=== PATIENT | male | born 1960 | race Caucasian/White ===

== ENCOUNTER 2020-02-21 09:33 | Day surgery (SDC) | payer OTHER, MEDICAID, SELFPAY ==
[2020-02-21] VITALS (16 sets, daily range): BP systolic 119–159; BP diastolic 77–98; PULSE 77–88; RESP 10–22; TEMP 36.7–37.6; O2SAT 94–99
--- NOTE | 2020-02-21 09:58 | SUR.OPER ---
Supine on padded OR bed, head on pillow, arms secured on padded arm boards at <90 degrees abduction, legs uncrossed, safety belt at thigh, tape over blanket over lower legs. RIGHT HIP BUMPED WITH SANDBAG
--- NOTE | 2020-02-21 10:25 | PM.PREOP ---
Pre-operative Note Interval Note History & Physical reviewed/Exam performed by Physician: Yes Changes to H&P: No H&P completed within 30 days and has changed as indicated here:: Patient has not had a Covid test due to unavailability in his home area.
[2020-02-21] MEDS: LACTATED RINGERS 1,000 ML 42 ML IV (10:41)
[2020-02-21] MEDS: CEFAZOLIN 1 GM/50 ML FROZ.PIGGY IV (10:43)
[2020-02-21] MEDS: BUPIVACAINE 0.5% (PF) VIAL 30 ML INJ (11:08)
--- NOTE | 2020-02-21 11:59 | PM.OP.1 ---
Operative Date/Time/Diagnoses Date of procedure: 02/21/20 Time of procedure: 11:45 Pre-op diagnosis: Right distal fibular fracture with deltoid ligament injury Post-op diagnosis: same Procedure & Clinicians Procedure: Open reduction internal fixation of right distal fibular fracture Same procedure as scheduled: Yes Indications: The patient is a 60-year-old gentleman who misstepped going down stairs. He rolled his ankle and was diagnosed with an ankle fracture at his primary care office on [address]. He was seen in my office earlier this week for treatment. X-rays revealed widening of the medial clear space and after discussion the risks benefits and alternatives to surgery he has agreed to proceed. Risks discussed included but were not limited to: Failure to improve, stiffness, infection, nerve damage, deep venous thrombosis, pulmonary embolism, stroke, myocardial infarction, permanent paralysis and . Surgeon: Kevon Madrigal Click Yes if Unassisted: Yes Anesthesia Type: General and Local Operative Notes Findings: Transverse oblique distal fibular fracture with minimally displaced small posterior malleolar fragment. The medial clear space returned to normal with fixation of the fibular fracture. Closure Type: primary Specimen(s): none sent Prosthetic devices, grafts, tissues, transplants, or devices: Implants used in this procedure were manufactured by the [employer] and included a 1/3 tubular 6 hole sideplate with 4 cortical and 2 cancellous screws. Applied: cast(s) (Bulky Patel splint) and implant(s) Estimated Blood Loss (mL): 10 Blood products transfused: none Tourniquet time (min): 35 Procedure in detail: The patient was seen in the preoperative area where he identified his right leg as the operative site and this was marked with my initials. His splint was removed in the preop area to check for fracture blisters and there were none. He received preoperative antibiotics and was taken to the operating room and placed on the operating room table in a supine position. He underwent induction with general anesthetic. After the onset of satisfactory general anesthesia, his right leg was encircled with a tourniquet and prepared from the toes the tourniquet with ChloraPrep in the usual fashion and draped through sterile drapes. Prior to prepping and draping a multimedia teacher-out was performed. The leg was elevated and exsanguinated with an Esmarch bandage. The tourniquet was inflated to 250 mm of mercury. An approximately 10 cm incision was created over the distal fibula. This was carried to the fascia with scissor dissection. Hemostasis was maintained with electrocautery. Fascia was incised with care being taken to observe possible branches of the superficial peroneal nerve. None were found. The fracture was reduced with a lobster claw reduction clamp. The fracture was oblique but too horizontal to allow the placement of the lag screw. The fracture was held reduced with the lobster claw clamp while a 1/3 tubular plate was appropriately bent into shape and applied to the lateral side of the fibula. All 6 holes in the plate were filled with the distal 2 being cancellous screws because of proximity to the joint and the proximal 4 being bicortical cortical screws. The position of the fracture and all hardware was confirmed as appropriate on the mortise and lateral views with fluoroscopy. The wound was irrigated. The fascia was reapproximated using 0 Vicryl. The subcutaneous layer was closed with 3 O Vicryl. The skin was closed with evaristo. 0.5% Marcaine was injected into the subcutaneous tissues for postoperative pain control. A dressing of Xeroform, sterile 4x4s sterile cast padding and then additional nonsterile cast padding followed by a stirrup splint to create a bulky Patel were applied. The patient was then extubated in the operating room and taken to the recovery room in good condition having tolerated the procedure well. Complications: none Post-operative Condition: stable Disposition: PACU Plan for aftercare: Patient will be discharged today. He will be followed up in 2 weeks for transition to a short-leg cast. He will be instructed to remain nonweightbearing for the 1st 4 weeks. He will then be allowed to weightbear in a removable orthosis.
[2020-02-21] MEDS: OXYCODONE/ACETAMINOPHEN 5/325 TABLET 1 TAB PO (12:15)
[2020-02-21] MEDS: MEPERIDINE 50 MG/ML INJ 12.5 MG IV ×2 (12:15→12:26)
[2020-02-21] MEDS: ONDANSETRON 4 MG/2 ML INJ IV (12:16)
--- NOTE | 2020-02-21 13:09 | SUR.PHASEII ---
Gave patient po medication for c/o pain. Patient is tolerating oral. Denies nausea. Dressing CDI. Cap refill < 2 seconds. KUO's x 4. Right popliteal +2.
[2020-02-21] MEDS: OXYCODONE IR 5 MG TABLET PO (13:21)
--- NOTE | 2020-02-21 13:24 | SUR.PHASEII ---
Patient continues to c/o pain. Gave po pain medication.
== END 2020-02-21 14:28 | disposition home or self-care (01) ==
PROVIDERS: PCP Family Medicine; Referring Provider Orthopaedic Surgery; Visit Provider Orthopaedic Surgery
PROC: 0SSF04Z Reposition Right Ankle Joint with Internal Fixation Device, Open Approach (ICD-10-PCS; CPT 27792; principal; 2020-02-21 11:00)
DX: S82.841A Displaced bimalleolar fracture of right lower leg, initial encounter for closed fracture (principal); W10.9XXA Fall (on) (from) unspecified stairs and steps, initial encounter
CPT/HCPCS: 27792; J1100; J2175; J2405; J2704; J3010

== ENCOUNTER → 2021-05-10 08:41 | Outpatient (CLI) | payer OTHER, MEDICAID, SELFPAY ==
[2021-05-10 09:45] LABS: COVID19 -Nasal RAPID Negative (Negative)
== END ==
PROVIDERS: PCP Family Medicine; Referring Provider Physician Assistant; Visit Provider Physician Assistant
DX: Z01.812 Encounter for preprocedural laboratory examination (principal); Z20.822 Contact with and (suspected) exposure to COVID-19
CPT/HCPCS: 87635

== ENCOUNTER 2021-05-13 08:48 | Day surgery (SDC) | payer OTHER, MEDICAID, SELFPAY ==
[2021-05-10 10:38] VITALS: BMI 25.1
[2021-05-13] VITALS (8 sets, daily range): BP systolic 121–163; BP diastolic 75–102; PULSE 70–80; RESP 14–20; TEMP 36.2–37; O2SAT 96–100; BMI 25.1
[2021-05-13] MEDS: LACTATED RINGERS 1,000 ML 84 ML IV (09:11)
--- NOTE | 2021-05-13 11:09 | PM.PREOP ---
Pre-operative Note COVID-19 COVID-19 status: Negative Interval Note History & Physical reviewed/Exam performed by Physician: Yes Changes to H&P: No
--- NOTE | 2021-05-13 11:21 | SUR.OPER ---
Supine on padded OR bed, head on pillow, operative arm on hand board, non operative arm secured on padded arm boards at <90 degrees abduction, legs uncrossed, safety belt at thigh, tape over blanket over lower legs.
[2021-05-13] MEDS: GABAPENTIN 300 MG CAPSULE PO (11:34)
[2021-05-13] MEDS: ACETAMINOPHEN 325 MG TABLET 975 MG PO (11:34)
[2021-05-13] MEDS: CEFAZOLIN 1 GM VIAL 2 GM IV (11:54)
[2021-05-13] MEDS: BUPIVACAINE 0.5% (PF) VIAL 30 ML INJ (12:09)
--- NOTE | 2021-05-13 13:37 | P.OP_ITS ---
Operative Date/Time/Diagnoses Date of procedure: 05/13/21 Time of procedure: 11:00 Pre-op diagnosis: Right extensor pollicis longus laceration Post-op diagnosis: same Procedure & Clinicians Procedure: Repair right extensor pollicis longus tendon Same procedure as scheduled: Yes Indications: This is a 61-year-old gentleman with a laceration of his extensor pollicis longus. It was an open laceration. His wound was allowed to heal some and not be infected prior to repair. He had inability to extend his thumb. Surgeon: Jaky Pierre Click Yes if Unassisted: Yes Anesthesia Type: General Operative Notes Findings: Complete laceration of the EPL with significant proximal retraction, tight but adequate repair Closure Type: primary Specimen(s): none sent Estimated Blood Loss (mL): 20 Tourniquet time (min): 63 Procedure in detail: Patient is brought to the operating room. Time-out was performed. He underwent induction of a general anesthesia. His right upper extremities prepped draped standard sterile fashion after the application of a high arm tourniquet and giving him IV antibiotics. The patient's previous traumatic wound appeared benign it was extended proximally dissection was carried out through skin and subcutaneous tissues. The distal stump of the EPL was easily identified. It was carefully mobilized and a Tycron stitch was placed in it in order to further mobilize it and minimize tendon injury. The incision was extended some proximally. A tendon Gripper was passed in the extensor tendon space. There was a tiny strand of residual tendon but the overall tendon had retracted about 2-3 cm proximally. It was too difficult to mobilize even with a specific tendon grasper without opening more dorsally. Dorsal incision was extended up towards dorsum of the wrist and Naveen's region. The proximal into the tendon was carefully caught I then placed a stitch in it and work on progressively mobilizing the tendon as well as pulling some traction as it was felt to have proximally retracted and had shortened some. A Nik n eedle was then placed with the tendon pulled as far distally as possible in order to capture the tendon and prevent repeat proximal retraction. The tendon was then meticulously repaired with a 3-0 Supramid with several strands. An additional stitch was also placed. The thumb was held in maximum extension. We then gently checked the repair I was noted that the repair failed. The tendon was then repaired with Supramid stitches. Adequate quality repair was achieved. Thumb was kept in maximum extension after the repair. The wound was meticulously irrigated with Marcaine and injected with Marcaine. The skin was closed with interrupted nylon. Complications: none Post-operative Condition: stable Disposition: same day surgery Plan for aftercare: Maximum extension of his thumb. Return to clinic in 3 weeks for a wound check and suture removal please keep his thumb in maximum extension when the cast is removed. Probably needs a total of 6 weeks of immobilization.
[2021-05-13] MEDS: OXYCODONE IR 5 MG TABLET PO (13:48)
== END 2021-05-13 14:47 | disposition home or self-care (01) ==
PROVIDERS: PCP Family Medicine; Referring Provider Orthopaedic Surgery; Visit Provider Orthopaedic Surgery
PROC: (CPT 26410; principal; 2021-05-13 10:45)
DX: S66.221A Laceration of extensor muscle, fascia and tendon of right thumb at wrist and hand level, initial encounter (principal); F17.210 Nicotine dependence, cigarettes, uncomplicated; W01.0XXA Fall on same level from slipping, tripping and stumbling without subsequent striking against object, initial encounter
CPT/HCPCS: 26410; J0690; J1100; J2250; J2405; J2704; J3010

== ENCOUNTER → 2022-05-03 12:14 | Outpatient (CLI) | payer SELFPAY ==
[2022-05-03 12:59] LABS: Medtox DOT Urine Drug Screen See Separate Report; Medtox ETOH only See Separate Report
== END ==
PROVIDERS: PCP Family Medicine
DX: Z02.1 Encounter for pre-employment examination (principal)
CPT/HCPCS: 80320; 81099; G0480